=== PATIENT | female | born 1990 | race Two or more races ===

== ENCOUNTER 2019-09-23 12:01 | Emergency (ER) | payer OTHER ==
[2019-09-23] MEDS ORDERED: Fluorescein Sodium TOPICAL* 1 MG TEST STRIP OPHTHALMIC ONE (12:22)
[2019-09-23] MEDS ORDERED: Tetracaine 0.5% OPTH.SOL 4 ML* 1 DROP BTL BOTH EYES SCH (12:30)
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
[2019-09-23 13:29] VITALS: BP 118/80
== END 2019-09-23 13:27 | disposition home or self-care (01) ==
LOC: ED 12:01
DX: S61.511A Laceration without foreign body of right wrist, initial encounter (principal); T20.10XA Burn of first degree of head, face, and neck, unspecified site, initial encounter; X08.8XXA Exposure to other specified smoke, fire and flames, initial encounter; W40.8XXA Explosion of other specified explosive materials, initial encounter; Y92.219 Unspecified school as the place of occurrence of the external cause; Y99.8 Other external cause status
CPT/HCPCS: 12001; 99281; A9270-GY